=== PATIENT | male | born 2000 | race Caucasian/White ===

== ENCOUNTER 2024-03-17 03:18 | Emergency (ER) | payer BC ==
--- NOTE | 2024-03-17 03:34 | EDPHYS ---
Physician Documentation [facility] Name: Isrrael Tello Age: 23 yrs Sex: Male : 2000 Arrival Date: 03/17/2024 Time: 03:18 Bed 5 Private MD: ED Physician Yury Merino HPI: 03/17 03:35 This 23 yrs old Male presents to ER via Unassigned with complaints of ec2 Hemorrhoids. 03:35 Patient arrives today due to concern for hemorrhoids. Noted some bumps on his behind, ec2 noted some blood in his stool. No abdominal pain, no nausea or vomiting.. Historical: - Allergies: 03:34 No Known Allergies; vc1 - Home Meds: 03:34 None [Active]; vc1 - PMHx: 03:34 None; vc1 - PSHx: 03:34 ankle; orchiopexy; vc1 - Immunization history:: Client reports having NOT received the Covid vaccine. Flu vaccine status is unknown. - Infectious Disease History:: Denies. - Social history:: Smoking status: Patient denies any tobacco usage or history of. ROS: 03:35 Constitutional: as per hpi ec2 Exam: 03:35 Constitutional: GEN: NAD Head: atraumatic Eyes: EOMI Ears: External ears are ec2 normal. CV: regular rate LUNGS: no respiratory distress ABD: non-distended. : Performed under nurse supervision, JEOVANY Santos, rectal exam shows multiple superficial nonthrombosed hemorrhoids SKIN: no evidence of rashes MSK: no evidence of trauma Vital Signs: 03:39 BP 134 / 93; Pulse 109; Resp 14; Temp 98.8; Pulse Ox 98% ; Weight 79.38 kg; Height 5 vc1 ft. 8 in. ; Pain 1/10; 03:39 Body Mass Index 26.61 (79.38 kg, 172.72 cm) vc1 03:39 Pain Scale: Adult vc1 [place] Coma Score: 03:37 Eye Response: spontaneous(4). Motor Response: obeys commands(6). Verbal Response: dd2 oriented(5). Total: 15. MDM: 03:23 Medical Screening Exam initiated ec2 03:35 Data reviewed: vital signs, nurses notes. ED course: Patient arrives today for ec2 hemorrhoids. Examination shows hemorrhoids. Will treat the patient for hemorrhoids with lidocaine and Anusol. Patient discharged home and instructed follow-up with GI and instructed on high-fiber intake. Return precautions given.. Administered Medications: 03:42 Drug: Lidocaine Mucous Membrane Gel 2 % 1 application Mucous Membrane once Route: dd2 Mucous Membrane; 03:50 Follow up: Response: Medication administered at discharge. dd2 Disposition Summary: 03/17/24 03:33 Discharge Ordered Notes: Location: Home ec2 Condition: Stable ec2 Diagnosis - Unspecified hemorrhoids ec2 Followup: ec2 - With: Zane Colon MD - When: - Reason: Recheck today's complaints Discharge Instructions: - Discharge Summary Sheet ec2 - High-Fiber Eating Plan ec2 - Hemorrhoids ec2 Forms: - Medication Reconciliation Form ec2 - Antibiotic Education ec2 - Prescription Opioid Use ec2 - Patient Portal Instructions ec2 - Leadership Thank You Letter ec2 Prescriptions: - lidocaine 4 % gel - apply 1 application RECTAL route 3 times per day as needed for pain; 30 ec2 milliliter; Refills: 0, Product Selection Permitted - Anusol-HC 25 mg Rectal Suppository - insert 1 suppository RECTAL route every 12 hours As needed; 20 suppository; ec2 Refills: 0, Product Selection Permitted Signatures: Danielle Bliss RN RN vc1 Yury Merino MD MD ec2 ROWAN MOTA RN RN dd2
--- NOTE | 2024-03-17 03:34 | ER ---
Nurse's Notes [facility] Name: Isrrael Tello Age: 23 yrs Sex: Male : 2000 Arrival Date: 03/17/2024 Time: 03:18 Bed 5 Private MD: Diagnosis: Unspecified hemorrhoids Presentation: 03/17 03:33 Chief complaint: Patient states: large bleeding hemorrhoid. vc1 03:39 Coronavirus screen: Client denies travel out of the [place] in the last 14 days. At this vc1 time, the client does not indicate any symptoms associated with coronavirus-19. Ebola Screen: Patient negative for fever greater than or equal to 101.5 degrees Fahrenheit, and additional compatible Ebola Virus Disease symptoms Patient denies exposure to infectious person. Patient denies travel to an Ebola-affected area in the 21 days before illness onset. No symptoms or risks identified at this time. Initial Sepsis Screen: Does the patient meet any 2 criteria? No. Patient's initial sepsis screen is negative. Does the patient have a suspected source of infection? No. Patient's initial sepsis screen is negative. Risk Assessment: Do you want to hurt yourself or someone else? Patient reports no desire to harm self or others. Onset of symptoms was March 14, 2024. Care prior to arrival: None. Activity prior to arrival: None. Mechanism of Injury: No Mechanism of Injury. 03:39 Method Of Arrival: Ambulatory vc1 03:39 Acuity: ISABEL 4 vc1 Triage Assessment: 03:40 General: Appears in no apparent distress. Behavior is calm, cooperative, appropriate vc1 for age. Pain: Complains of pain in anus Pain does not radiate. Pain currently is 1 out of 10 on a pain scale. at worst was 7 out of 10 on a pain scale. EENT: No deficits noted. No signs and/or symptoms were reported regarding the EENT system. Neuro: Level of Consciousness is awake, alert, obeys commands, Oriented to person, place, time, situation, Appropriate for age. Cardiovascular: Capillary refill < 3 seconds Patient's skin is warm and dry. Respiratory: Airway is patent Respiratory effort is even, unlabored, Respiratory pattern is regular, symmetrical. GI: No deficits noted. No signs and/or symptoms were reported involving the gastrointestinal system. GI: Reports hemorrhoids. : No deficits noted. No signs and/or symptoms were reported regarding the genitourinary system. Derm: Skin is intact, is healthy with good turgor, Skin is dry, Skin is normal. Historical: - Allergies: 03:34 No Known Allergies; vc1 - Home Meds: 03:34 None [Active]; vc1 - PMHx: 03:34 None; vc1 - PSHx: 03:34 ankle; orchiopexy; vc1 - Immunization history:: Client reports having NOT received the Covid vaccine. Flu vaccine status is unknown. - Infectious Disease History:: Denies. - Social history:: Smoking status: Patient denies any tobacco usage or history of. Screenin:37 [facility] ED Fall Risk Assessment (Adult) History of falling in the last 3 months, vc1 including since admission No falls in past 3 months (0 pts) Confusion or Disorientation No (0 pts) Intoxicated or Sedated No (0 pts) Impaired Gait No (0 pts) Mobility Assist Device Used No (0 pt) Altered Elimination No (0 pt) Score/Fall Risk Level 0 - 2 = Low Risk Oriented to surroundings, Maintained a safe environment, Educated pt \T\ family on fall prevention, incl call for assistance when getting out of bed. Abuse screen: Denies threats or abuse. Nutritional screening: No deficits noted. Tuberculosis screening: No symptoms or risk factors identified. Assessment: 03:37 General: Appears in no apparent distress. uncomfortable, Behavior is calm, cooperative, dd2 appropriate for age. Pain: Complains of pain in rectum Pain does not radiate. Pain currently is 8 out of 10 on a pain scale. Neuro: No deficits noted. Danielson Agitation-Sedation Scale (RASS): 0 - Alert and Calm Level of Consciousness is awake, alert, obeys commands, Oriented to person, place, time, situation, Appropriate for age. Cardiovascular: No deficits noted. Patient's skin is warm and dry. Respiratory: No deficits noted. Airway is patent Respiratory effort is even, unlabored, Respiratory pattern is regular, symmetrical. GI: Rectal exam: Deferred to physician Hemorrhoids noted, Reports hemorrhoids. : No deficits noted. No signs and/or symptoms were reported regarding the genitourinary system. EENT: No deficits noted. No signs and/or symptoms were reported regarding the EENT system. Derm: No deficits noted. No signs and/or symptoms reported regarding the dermatologic system. Musculoskeletal: No deficits noted. No signs and/or symptoms reported regarding the musculoskeletal system. Circulation, motion, and sensation intact. Range of motion: intact in all extremities. Vital Signs: 03:39 BP 134 / 93; Pulse 109; Resp 14; Temp 98.8; Pulse Ox 98% ; Weight 79.38 kg; Height 5 vc1 ft. 8 in. ; Pain 03/29; 03:39 Body Mass Index 26.61 (79.38 kg, 172.72 cm) vc1 03:39 Pain Scale: Adult vc1 [place] Coma Score: 03:37 Eye Response: spontaneous(4). Motor Response: obeys commands(6). Verbal Response: dd2 oriented(5). Total: 15. ED Course: 03:20 Patient arrived in ED. [id number] 03:23 Yury Merino MD is Attending Physician. ec2 03:33 ROWAN MOTA RN is Primary Nurse. dd2 03:33 Zane Colon MD is Referral Physician. ec2 03:36 Arm band placed on right wrist. vc1 03:37 Patient has correct armband on for positive identification. Bed in low position. Call dd2 light in reach. Provided Education on: medication . Client placed on continuous cardiac and pulse oximetry monitoring. NIBP monitoring applied. Door closed. Noise minimized. Verbal reassurance given. 03:37 No provider procedures requiring assistance completed. Patient did not have IV access dd2 during this emergency room visit. Patient maintains SpO2 saturation greater than 95% on room air. 03:40 Triage completed. vc1 Administered Medications: 03:42 Drug: Lidocaine Mucous Membrane Gel 2 % 1 application Mucous Membrane once Route: dd2 Mucous Membrane; 03:50 Follow up: Response: Medication administered at discharge. dd2 Medication: 03:37 VIS not applicable for this client. dd2 Outcome: 03:33 Discharge ordered by . ec2 03:51 Discharged to home ambulatory, dd2 03:51 Condition: stable 03:51 Discharge instructions given to patient, Instructed on discharge instructions, follow up and referral plans. medication usage, Demonstrated understanding of instructions, follow-up care, medications, Prescriptions given X 1, 03:51 Patient left the ED. dd2 Signatures: Amarilis Mojica [id number] Danielle Bliss RN RN vc1 Yury Merino MD MD ec2 ROWAN MOTA, JEOVANY RN dd2
[2024-03-17] MEDS ORDERED: LIDOCAINE VISCOUS 2% 10ML ORAL SOLN ONE (03:42)
[2024-03-17 04:01] VITALS: BP 134/93; TEMP 98.8; O2SAT 98
== END 2024-03-17 03:51 | disposition home or self-care (01) ==
LOC: ER 03:18
DX: K64.9 Unspecified hemorrhoids (principal)
CPT/HCPCS: 99283